=== PATIENT | female | born 1935 | race Caucasian/White ===

== ENCOUNTER → 2018-09-14 08:00 | Outpatient (CLI) | payer MEDICARE, OTHER ==
[2013-07-24 13:57] VITALS: BMI 37.0
[~2018-09-14 08:00] MED LIST: KEFLEX500 MG PO; MELATONIN 3 MG1 TAB PO; NORVASC2.5 MG PO; PERCOCET 10/3251 TA1 PO; PRILOSEC20 MG PO
== END | disposition home or self-care (01) ==
LOC: D.MAMMO 08:00
DX: Z85.3 Personal history of malignant neoplasm of breast (principal)

== ENCOUNTER 2018-12-17 09:57 | Inpatient (IN) | payer MEDICARE ==
[~2018-12-17] VITALS: Ht 170.2 cm; Wt 99.8 kg
[2018-12-17 10:14] LABS: BASOPHILS 0.5 % (0-2); EOSINOPHILS 2.3 % (0-7); HEMATOCRIT 36.8 % (36.0-48.0); HEMOGLOBIN 12.3 g/dL (12-16); IMMATURE GRANULOCYTES 0.3 % (0-5); LYMPHOCYTES 19.8 % (15-50); MCH 31.9 pg (26.0-34.0); MCHC 33.4 g/dL (31.0-37.0); MCV 95.3 fL (80.0-100.0); MEAN PLATELET VOLUME 9.6 fL (7.4-10.4); MONOCYTES 10.9 % (2-11); NEUTROPHILS 66.2 % (40-80); PLATELET COUNT 243 10x3/uL (130-400); RBC 3.86 10x6/uL (4.00-5.40); RDW 13.6 % (11.5-14.5); WBC 6.6 10x3/uL (4.8-10.8)
[2018-12-17 10:30] LABS: APTT 30.1 SECONDS (22.8-39.4); INR 1.06 (0.85-1.17); PROTIME 13.3 SECONDS (11.6-15.0)
[2018-12-17 10:49] LABS: ALBUMIN 3.5 g/dL (3.4-5.0); ALKALINE PHOSPHATASE 85 U/L (46-116); ALT (SGPT) 18 U/L (10-68); CALC OSMOLALITY 289 mosm/kg (275-300); CALCIUM 8.7 mg/dL (8.5-10.1); CARBON DIOXIDE 24.5 mmol/L (21.0-32.0); CHLORIDE - SERUM 107 mmol/L (98-107); GLUCOSE 105 mg/dL (74-106); POTASSIUM - SERUM 4.1 mmol/L (3.5-5.1); PROTEIN - SERUM 7.1 g/dL (6.4-8.2); SODIUM 142 mmol/L (136-145); UREA NITROGEN 33 mg/dL (7-18); eGFR NON AFRICAN AMERICAN 25 mL/min (90-120)
[2018-12-17 11:01] LABS: CKMB 8.3 U/L (0.0-3.6); CREATINE KINASE 510 UL (21-215); MAGNESIUM - SERUM 1.5 mg/dL (1.8-2.4); THYROID STIMULATING HORMONE 3.72 uIU/mL (0.36-3.74); TROPONIN-I 0.026 ng/mL (0.000-0.060)
[2018-12-17 11:57] LABS: APPEARANCE CLEAR (CLEAR); BILIRUBIN NEGATIVE (NEGATIVE); COLOR YELLOW (YELLOW); GLUCOSE 50 mg/dL (NEGATIVE); KETONE NEGATIVE (NEGATIVE); NITRITE POSITIVE (NEGATIVE); PROTEIN TRACE mg/dL (NEGATIVE); UROBILINOGEN NORMAL (NORMAL)
[2018-12-17 11:58] LABS: RED CELLS - URINE 0-5 /hpf (0-5)
[2018-12-17 11:59] LABS: AMORPHOUS SEDIMENT <1+ /lpf (NONE SEEN); BACTERIA MANY /hpf (NONE SEEN); HYALINE CAST 0-5 /lpf (NONE SEEN); MUCUS >1+ /lpf (NONE SEEN)
[2018-12-17 12:26] VITALS: BP 162/88
--- NOTE | 2018-12-17 13:31 | NUR ---
PT ARRIVED, SLEEPING CURRENTLY. BED ALARM IN PLACE. NO CONCERNS/COMPLAITNS AT THIS TIME.
[2018-12-17 16:00] VITALS: BP 192/107
--- NOTE | 2018-12-17 16:56 | NUR ---
PT B/P ELEVATED, GAVE AMLODAPINE EARLY PER DR. PERDOMO
[2018-12-17 17:43] VITALS: BP 195/98; BMI 31.4
--- NOTE | 2018-12-17 18:02 | NUR ---
ASSESSMENT COMPLETE AAOX2 RESP UNLABORED SKIN W/D SALINE LOCK RT WRIST WITH OCCLUSIVE DRSG TO SITE FREE OF REDNESS OR EDEMA WILL CONTINUE TO MANDA
--- NOTE | 2018-12-17 19:15 | NUR ---
RECEIVED REPORT, ASSUMED CARE OF PATIENT. ALERT/AWAKE ORIENTED TO NAME, PLACE. STATED "I DO NOT FEEL BAD ENOUGH TO BE HERE". EXPLAINED TO HER THAT SHE NEEDED IV ANTIBIOTICS FOR HER UTI AND MEDICATION TO BRING DOWN HER HIGH B/P. STATED "OH, OK". INQUIRED IF SHE NEEDED A DRINK OR SNACK. ACCEPTED A CRANBERRY JUICE. ORIENTED TO CALL LIGHT FOR ANY NEEDS.
[2018-12-17 21:10] VITALS: BP 178/85
[2018-12-17 23:58] VITALS: BP 176/82
--- NOTE | 2018-12-18 01:12 | NUR ---
RESTING ON LEFT SIDE WITH EYES CLOSED. RR 18 EVEN U/L. NO S/S OF DISCOMFORT. CL IN REACH.
--- NOTE | 2018-12-18 02:40 | NUR ---
RESTING ON R SIDE WITH EYES CLOSED. RR 20 EVEN U/L ON ROOM AIR. NO S/S OF DISCOMFORT. CL IN REACH.
[2018-12-18 05:48] LABS: BASOPHILS 0.5 % (0-2); EOSINOPHILS 2.9 % (0-7); HEMOGLOBIN 11.5 g/dL (12-16); IMMATURE GRANULOCYTES 0.2 % (0-5); LYMPHOCYTES 26.3 % (15-50); MCHC 33.8 g/dL (31.0-37.0); MCV 94.7 fL (80.0-100.0); MEAN PLATELET VOLUME 9.9 fL (7.4-10.4); MONOCYTES 11.6 % (2-11); NEUTROPHILS 58.5 % (40-80); PLATELET COUNT 219 10x3/uL (130-400); RBC 3.59 10x6/uL (4.00-5.40); RDW 13.6 % (11.5-14.5); WBC 6.1 10x3/uL (4.8-10.8)
[2018-12-18 05:51] VITALS: BP 174/80
[2018-12-18 06:11] LABS: ALBUMIN 2.9 g/dL (3.4-5.0); ANION GAP 13.9 mmol/L (8-16); BILIRUBIN - TOTAL 0.5 mg/dL (0.2-1.3); CALCIUM 8.4 mg/dL (8.5-10.1); CREATININE - SERUM 1.7 mg/dL (0.6-1.3); MAGNESIUM - SERUM 1.6 mg/dL (1.8-2.4); POTASSIUM - SERUM 3.9 mmol/L (3.5-5.1); PROTEIN - SERUM 6.1 g/dL (6.4-8.2); T4 THYROXIN - FREE 0.95 ng/dL (0.76-1.46); THYROID STIMULATING HORMONE 3.66 uIU/mL (0.36-3.74)
--- NOTE | 2018-12-18 07:34 | NUR ---
PT ASLEEP, DID NOT WAKE I ENTERED. DID NOT FURTHER DISTURB AT THIS TIME. CL IN REACH. SRX2. WAS TOLD BY NIGHT NURSE THAT WAS IN DISTRESS OVER HIS WIFES CONDITION YESTERDAY. WILL CONTINUE TO REASURE AND PT OF EACH OTHERS CONDITIONS WHEN NEEDED.
[2018-12-18 09:54] VITALS: BP 170/80
[2018-12-18 12:46] VITALS: BP 157/76
--- NOTE | 2018-12-18 13:37 | NUR ---
I have reviewed this patient and I concur with the Shift Assessment completed by the Licensed Practical Nurse today this shift.
--- NOTE | 2018-12-18 15:22 | NUR ---
PT WOKE UP ANGRY, WANTS TO SEE . ASLEEP, WILL TRY AGAIN LATER.
--- NOTE | 2018-12-18 15:50 | NUR ---
PT REFUSED SCDS
[2018-12-18 18:31] VITALS: BP 168/90
--- NOTE | 2018-12-18 18:40 | NUR ---
PT LYING IN BED SLEEPING, NO COMPLAINTS OR CONCNERS. OCCASIONALLY Darin DONALDSONES TO VISIT IN 16. NO PROBLEMS NOTED WITH MOVING. BED ALARM ON, PT WILL OCCASIONALLY WONDER TO HUSBANDS BED IF NOT. CL IN REACH, SRX2.
[2018-12-18 20:07] VITALS: BP 184/97
--- NOTE | 2018-12-18 20:25 | NUR ---
ALERT/AWAKE ORIENTED TO NAME, , YEAR. KNOWS SHE IS IN THE HOSPITAL, BUT STATED FOR A BLOOD CLOT AND NOT FOR BLADDER INFECTION. DENIES PAIN. REQUESTED CRANBERRY JUICE. IV IN RT WRIST INTACT SL. ORIENTED TO USE CALL LIGHT FOR ANY NEEDS. KARLA ALARM IS ON. LEFT DOOR PARTIALLY OPENED TO MONITOR CLOSELY.
--- NOTE | 2018-12-18 20:50 | NUR ---
ADMIN SCHED NORVASC PO. DENIES ANY NEEDS OR DISCOMFORTS.
[2018-12-19 00:02] VITALS: BP 172/90
--- NOTE | 2018-12-19 02:01 | NUR ---
RESTING WITH EYES CLOSED. RR 18 EVEN U/L ON ROOM AIR. NO SIGNS OR SYMPTOMS OF DISCOMFORT. BED IS LOW WITH CALL LIGHT IN REACH. KARLA ALARM IS ON.
[2018-12-19 04:41] LABS: HEMATOCRIT 33.3 % (36.0-48.0); HEMOGLOBIN 11.5 g/dL (12-16); LYMPHOCYTES 25.6 % (15-50); MCH 32.8 pg (26.0-34.0); MCHC 34.5 g/dL (31.0-37.0); MCV 94.9 fL (80.0-100.0); MEAN PLATELET VOLUME 9.3 fL (7.4-10.4); NEUTROPHILS 62.3 % (40-80); PLATELET COUNT 209 10x3/uL (130-400); RBC 3.51 10x6/uL (4.00-5.40); RDW 13.3 % (11.5-14.5); WBC 6.2 10x3/uL (4.8-10.8)
[2018-12-19 04:57] LABS: ALBUMIN 2.9 g/dL (3.4-5.0); ANION GAP 11.6 mmol/L (8-16); BILIRUBIN - TOTAL 0.31 mg/dL (0.2-1.3); CALCIUM 8.3 mg/dL (8.5-10.1); CARBON DIOXIDE 25.1 mmol/L (21.0-32.0); CREATININE - SERUM 1.8 mg/dL (0.6-1.3); MAGNESIUM - SERUM 1.9 mg/dL (1.8-2.4); POTASSIUM - SERUM 3.7 mmol/L (3.5-5.1); PROTEIN - SERUM 6.1 g/dL (6.4-8.2)
--- NOTE | 2018-12-19 05:45 | NUR ---
ADMIN SCHED PO MED WITH SIPS OF WATER. DENIES ANY NEEDS OR DISCOMFORTS.
[2018-12-19 06:01] VITALS: BP 184/86
--- NOTE | 2018-12-19 07:29 | NUR ---
ROUNDING DONE WTIH PATIENT LAYING ON BACK WITH KARLA MAT ALARM. THIS WAS OFF, TURNED OFF. THIS IS TURNED OFF AND YELLOW ARM BAND PLACED ON PATIENT. RIGHT WRIST PIV SEEN SALINE LOCK. ON EP, K+ IS 3.7. RESE. LEFT ARM WITH HX OF LUMPECTOMY. PATIENT IS TO BE UP WITH ASSIST. DOOR IS LEFT OPEN TO MONITOR. DENIES NEEDS AT THIS TIME.
[2018-12-19 07:48] VITALS: BP 199/83
--- NOTE | 2018-12-19 07:57 | NUR ---
PATIENT IS UPSET, CONFUSED. CONCERNED FOR HER . I HAD KEISHA OROURKE RN WHO IS TAKING CARE OF HER TO COME TALK TO HER. EXAM OF CHEST ON PATIENT WITH STUDENT IN ROOM SHOWS A SCAR TO RIGHT BREAST AREA. THE SIGNS ARE CHANGED TO REC. RIGHT ARM NOT LEFT IN REPORT.
--- NOTE | 2018-12-19 09:13 | NUR ---
PLACED IN WHEELCHAIR AND TO SEE . STUDENT IS WITH PATIENT.
--- NOTE | 2018-12-19 09:20 | NUR ---
BED LINENS CHANGED.
--- NOTE | 2018-12-19 09:50 | NUR ---
RETURNS FROM SEEING HER WITH STUDENT.
[2018-12-19 11:20] VITALS: BP 155/74
[2018-12-19 12:34] VITALS: Ht 170.2 cm; Wt 99.8 kg
--- NOTE | 2018-12-19 13:19 | NUR ---
RESTING WITH EYES CLOSED, RESP ARE EVEN. KARLA MAT ALARM IS ON AND IN USE.
[2018-12-19 14:41] VITALS: BP 155/76
--- NOTE | 2018-12-19 15:20 | NUR ---
PATIENT STILL WITH SOME CONFUSION, HX OF DEMENTIA. KARLA MAT ALARM IS ON.
--- NOTE | 2018-12-19 16:00 | NUR ---
RESTING WITH EYES CLOSED, RESP ARE EVEN. PATIENT STATED TO ME ISMAEL THAT HER SON WOULD BE HERE LATE TONIGHT AND THAT SHE WANTS TO GO HOME. I TOLD HER TO PLEASE TALK TO THE DOCTOR ABOUT THIS. KARLA MAT ALARM IS IN USE.
--- NOTE | 2018-12-19 16:25 | NUR ---
DR MCMAHON IN TO SEE PATIENT.
[2018-12-19] MEDS ORDERED: LOPRESSOR25 MG PO (16:38)
[2018-12-19] MEDS ORDERED: NORVASC5 MG PO (16:38)
[2018-12-19] MEDS ORDERED: LEVOFLOXACIN500 MG PO (16:38)
--- NOTE | 2018-12-19 18:16 | NUR ---
I TOOK PATIENT OVER TO SEE HER BY WHEELCHAIR. BACK TO ROOM.
--- NOTE | 2018-12-19 18:57 | NUR ---
AWAKE AND ALERT IN BED SL RT WRIST PT DENIES NEEDS BED IS LOW AND LOCKED CALL LIGHT IN REACH AND IS OKED FOR DC WHEN SON ARRIVES
[2018-12-19 21:48] VITALS: BP 167/83
--- NOTE | 2018-12-19 22:10 | NUR ---
PT IS IN CHAIR IN ROOM 16 WHERE IS A PT SHE SAYS SHE WILL SIT THERE TILL SON ARRIVES TOLERATING WELL NO DISTRESS
--- NOTE | 2018-12-20 08:07 | MORECARE ---
CASE MANAGEMENT DISCHARGE SUMMARY PATIENT: BERT GAO UNIT: [id number] ADM DATE: 12/17/18 AGE: 83 : 37 SEX: F ROOM/BED: D.2101 AUTHOR: SHAYE COREA PHYSICIAN: REFERRING PHYSICIAN: AMY AMARO DO DATE OF SERVICE: 12/20/18 Discharge Plan Patient Name: [facility]ERT GAO [facility] [facility] 1935 Planned Disposition: Home Anticipated Discharge Date: 12/19/18 Discharge Date: 12/19/2018 Expected LOS: 2 Initial Reviewer: [email or web address] Initial Review Date: 12/20/2018 Generated: 12/20/18 9:07 am Patient Name: BERT GAO Page [id number] at 0807 All edits/amendments must be made on the electronic document DICTATION DATE: 12/20/18805 [employer]PORATE FITNESS PROGRAM COORDINATOR: DM 12/20/18 08 RPT#: [id number] DC DATE:12/19/18 STATUS: DIS IN [facility] [address] [facility] [place] [address] END OF REPORT
--- NOTE | 2018-12-20 08:14 | MORECARE ---
CASE MANAGEMENT DISCHARGE SUMMARY PATIENT: BERT GAO UNIT: [id number] ADM DATE: 12/17/18 AGE: 83 : 37 SEX: F ROOM/BED: D.2100 AUTHOR: SHAYE COREA PHYSICIAN: REFERRING PHYSICIAN: AMY AMARO DO DATE OF SERVICE: 12/20/18 Discharge Plan Patient Name: BERT GAO Facility: [facility]:[place] : 1935 Planned Disposition: Home Anticipated Discharge Date: 12/19/18 Discharge Date: 12/19/2018 Expected LOS: 2 Initial Reviewer: [email or web address] Initial Review Date: 12/20/2018 Generated: 12/20/18 9:14 am Last DP export: 12/20/18 7:07 a Patient Name: BERT GAO Page [phone] at 0814 All edits/amendments must be made on the electronic document DICTATION DATE: 12/20/18812 USABILITY ENGINEER: MORGAN 12/20/18812 RPT#: [id number] DC DATE:12/19/18 STATUS: DIS IN [facility] [address] [place] [address] END OF REPORT
== END 2018-12-19 23:12 | disposition home or self-care (01) | DRG 689 ==
LOC: D.ER 09:57 → D.M2 12:16 → D.EDHOLD 12:16 → D.M2 12:37
PROVIDERS: Family Medicine; ADMIT Family Medicine; ATTEND Family Medicine
DX: N39.0 Urinary tract infection, site not specified (principal); G93.41 Metabolic encephalopathy; N17.9 Acute kidney failure, unspecified; D50.9 Iron deficiency anemia, unspecified; I10 Essential (primary) hypertension; F03.90 Unspecified dementia, unspecified severity, without behavioral disturbance, psychotic disturbance, mood disturbance, and anxiety; E83.42 Hypomagnesemia